=== PATIENT | female | born 1930 | race Caucasian/White ===

== ENCOUNTER 2017-01-01 10:39 | Emergency (ER) | payer OTHER, MEDICARE ==
[2017-01-01 10:43] VITALS: BP 145/83; PULSE 85; TEMP 98.6; BMI 18.0
--- NOTE | 2017-01-01 11:11 | PDOC ---
History of Present Illness - General Chief Complaint: Injury Stated Complaint: RT HAND SWELLING Time Seen by Provider: 01/01/17 11:09 History Source: Patient Exam Limitations: No Limitations - History of Present Illness Initial Comments: CHIEF COMPLAINT: 86 y/o afebrile female with PMH HTN, HLD c/o atraumatic right wrist pain. HISTORY OF PRESENT ILLNESS: The patient states that she was carrying all of her grocery bags on her right wrist 1.5 weeks ago. Afterwards the area felt sore. She states since that time the area has become swollen and more sore. She denies fall onto right hand/wrist. She denies numbness/tingling in fingers of right hand. She has been taking Advil for pain relief. Vital signs on arrival are within normal limits. REVIEW OF SYSTEMS: GENERAL/CONSTITUTIONAL: No fever/chills. No weakness. No weight change. HEAD, EYES, EARS, NOSE AND THROAT: No change in vision. No ear pain or discharge. No sore throat. MUSCULOSKELETAL: +right wrist pain and swelling. No neck or back pain. SKIN: No rash or easy bruising. NEUROLOGIC: No headache, vertigo, loss of consciousness, or loss of sensation. PHYSICAL EXAM: VITAL_SIGNS: within normal limits GENERAL_APPEARANCE: alert, cooperative, mild obvious discomfort. MENTAL_STATUS: speech clear, oriented X 3, responds appropriately to questions. NEURO: motor intact and sensory intact in injured extremity. EXTREMITIES: good pulse in injured extremity. slight deformity with edema to right distal ulna that is TTP. Full flexion, extension, pronation, supination of right wrist/forearm. Pain with extension and pronation of right wrist. SKIN: warm, dry, good color. Past History - Past Medical History Allergies/Adverse Reactions: Allergies Allergy/AdvReac Type Severity Reaction Status Date / Time No Known Allergies Allergy Verified 01/01/17 10:43 Home Medications: Ambulatory Orders Amlodipine Besylate [Norvasc -] 2.5 mg PO DAILY 09/10/12 Calcium Carbonate [Caltrate 600] 600 mg PO BID 09/10/12 Lisinopril [Prinivil] 5 mg PO DAILY 09/10/12 Simvastatin [Zocor -] 10 mg PO HS 09/10/12 Multivit-Min/FA/Lycopen/Lutein [Centrum Silver Tablet] 1 each PO DAILY 09/15/15 Anemia: No Asthma: No Cancer: Yes (COLON CANCER-HAD CHEMOTHERAPY) Cardiac Disorders: No CVA: No COPD: No CHF: No Dementia: No Diabetes: No GI Disorders: No Disorders: No HTN: Yes Hypercholesterolemia: Yes Liver Disease: No Seizures: No Thyroid Disease: No - Surgical History Abdominal Surgery: Yes (COLON RESECTION) Appendectomy: No Cardiac Surgery: No Cholecystectomy: No Lung Surgery: No Neurologic Surgery: No Orthopedic Surgery: No - Psycho/Social/Smoking Cessation Hx Anxiety: No Suicidal Ideation: No Smoking History: Former smoker Have you smoked in the past 12 months: No If you are a former smoker, when did you quit?: 30 Information on smoking cessation initiated: No Hx Alcohol Use: Yes (SOCIAL) Drug/Substance Use Hx: No Substance Use Type: None Hx Substance Use Treatment: No *Physical Exam - Vital Signs Last Vital Signs Temp Pulse Resp BP Pulse Ox 98.6 F 85 20 145/83 97 01/01/17 10:40 01/01/17 10:40 01/01/17 10:40 01/01/17 10:40 01/01/17 10:40 Medical Decision Making - Medical Decision Making A/P: 86 y/o female with possible atraumatic right wrist fracture. Plan is as follows: 1. 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 No acute fracture or dislocation is seen. The patient was given her results. Wrapped her affected hand with an LUCITA bandage and suggested she continue taking Advil if needed for pain. Instructed her to continue to ice the affected area and f/u with Dr. Lester within 2 weeks. Pt instructed to return to the ER with any worsening or concerning symptoms. The patient verbalizes understanding of all instructions, has no further questions and is awaiting discharge. *DC/Admit/Observation/Transfer Diagnosis at time of Disposition: Wrist pain, right - Discharge Dispostion Disposition: HOME Condition at time of disposition: Good - Referrals Referrals: Tavares Pritchett MD [Primary Care Provider] - Jeffy Lester MD [Staff Physician] - 1 week - Patient Instructions Printed Discharge Instructions: DI for Wrist Pain, DI for Wrist Sprain, How To Perform RICE (Rest, Ice, Compress, Elevate) Additional Instructions: Discharge Instructions: -Use LUCITA bandage for comfort -Follow RICE instructions -Continue taking Advil for pain if needed -Call Dr. Lester to schedule a follow up appointment if symptoms continue or worsen -Return to the ER with any worsening or concerning symptoms
== END 2017-01-01 12:25 | disposition home or self-care (01) ==
LOC: JERFT 10:39
DX: M25.531 Pain in right wrist (principal); I10 Essential (primary) hypertension; E78.00 Pure hypercholesterolemia, unspecified; E78.5 Hyperlipidemia, unspecified; Z85.038 Personal history of other malignant neoplasm of large intestine
CPT/HCPCS: 73110-TC-RT; 73130-TC-RT; 99281-25